=== PATIENT | male | born 1990 | race Caucasian/White ===

== ENCOUNTER 2024-04-14 16:30 | Inpatient (IN) | payer MEDICAID ==
[~2024-04-14] VITALS: Ht 167.6 cm; Wt 75.0 kg
[2024-04-14] MEDS ORDERED: QUET200T PO (17:36)
[2024-04-14] MEDS ORDERED: QUET300T2 PO (17:36)
[2024-04-14] MEDS ORDERED: HYDR-4808 PO (17:36)
[2024-04-14] MEDS ORDERED: SULF-261 PO (17:36)
[2024-04-14] MEDS ORDERED: OLAN2.5T78 PO (17:36)
[2024-04-14 17:55] LABS: GLUCOMETER DEV NAME(LOC) POC.BV; POC SARS-COV2 AG, FIA NEGATIVE (NEGATIVE)
[2024-04-14] MEDS: HALOPERIDOL 5 MG TABLET PO PRN (19:23)
[2024-04-14] MEDS: LORazepam 2 MG TABLET PO PRN (19:23)
[2024-04-14 21:26] VITALS: BP 127/74; PULSE 89; RESP 18; TEMP 97.6; O2SAT 96
[2024-04-15 07:56] LABS: BASOPHILS % (AUTO) 0.8 % (0.0-2.0); EOSINOPHILS % (AUTO) 3.1 % (1.0-6.0); HEMATOCRIT 43.4 % (41-53); HEMOGLOBIN 14.5 g/dL (13.5-17.5); LYMPHOCYTES # (AUTO) 2.2 K/uL (1.0-4.8); LYMPHOCYTES % (AUTO) 31.7 % (22.0-44.0); MEAN CORPUSCULAR HEMOGLOBIN 28.7 pg (26.0-34.0); MEAN CORPUSCULAR HGB CONC 33.4 G/dL (31.0-37.0); MEAN CORPUSCULAR VOLUME 86 fL (80-100); MONOCYTES # (AUTO) 0.5 K/uL (0.1-1.0); MONOCYTES % (AUTO) 7.3 % (2.0-9.0); NEUTROPHILS % (AUTO) 57.1 % (40.0-70.0); PLATELET COUNT (AUTO) 269 K/uL (150-450); RED BLOOD CELL COUNT(AUTO) 5.05 MIL/uL (4.50-5.90); RED CELL DISTRIBUTION WIDTH 12.5 % (11.5-14.5)
[2024-04-15 08:05] VITALS: BP 114/68; PULSE 82; RESP 16; TEMP 97.5; O2SAT 99
[2024-04-15 08:25] LABS: ALANINE AMINOTRANSFERASE 30 U/L (12-78); ALBUMIN 3.4 g/dL (3.4-5.0); ALKALINE PHOSPHATASE 68 U/L (46-116); ANION GAP 7 mmol/L (8-16); ASPARTATE AMINOTRANSFERASE 41 U/L (15-37); BILIRUBIN,TOTAL 0.4 mg/dL (0.1-1.0); CALCIUM, TOTAL 8.7 mg/dL (8.8-10.5); CARBON DIOXIDE 28 mmol/L (22-29); CHLORIDE 105 mmol/L (98-107); CHOL/HDL RATIO 2.5 (4.2-7.3); CHOLESTEROL 140 mg/dL (131-200); CREATININE 0.83 mg/dL (0.60-1.30); FREE T4 (FREE THYROXINE) 0.76 ng/dL (0.76-1.46); GLOMERULAR FILTR. RATE CALC > 60 mL/min (>60); GLUCOSE,RANDOM 90 mg/dL (70-110); HDL CHOLESTEROL 56 mg/dL (40-60); LDL CHOL (CALC.) 69 mg/dL (0-130); SODIUM SERUM 140 mmol/L (136-145); T4 (THYROXINE) 4.7 mcg/dL (4.7-13.3); THYROID STIMULATING HORMONE 1.39 uIU/mL (0.36-3.74); TOTAL PROTEIN, SERUM 6.7 g/dL (6.4-8.2); TRIGLYCERIDES 74 mg/dL (15-150); UREA NITROGEN, BLOOD 13 mg/dL (7-18)
[2024-04-15 08:54] LABS: ALCOHOL, BLOOD (SERUM) < 3 mg/dL (0-10)
[2024-04-15] MEDS ORDERED: HALOPERIDOL LACTATE 5 MG/ML VIAL ONE (17:31)
[2024-04-15] MEDS ORDERED: LORazepam 2 MG/ML VIAL ONE (17:31)
[2024-04-15] MEDS ORDERED: DiphenhydrAMINE HCL 50 MG/ML VIAL ONE (17:31)
[2024-04-15] MEDS ORDERED: ChlorproMAZINE HCL 50 MG/2 ML AMP ONE (17:34)
[2024-04-15] MEDS: DiphenhydrAMINE HCL 50 MG/ML VIAL IM ONE (18:24)
[2024-04-15] MEDS: LORazepam 2 MG/ML VIAL IM ONE (18:24)
[2024-04-15] MEDS: HALOPERIDOL LACTATE 5 MG/ML VIAL IM ONE (18:26)
[2024-04-15] MEDS: QUEtiapine FUMARATE 300 MG TABLET PO SCH (21:09)
[2024-04-15 22:16] VITALS: BP 121/76; PULSE 83; RESP 18; TEMP 97.8
[2024-04-16] MEDS: QUEtiapine FUMARATE 200 MG TABLET PO SCH (08:49)
[2024-04-16 12:44] VITALS: BP 122/71; PULSE 82; RESP 18; TEMP 97.5; O2SAT 98
[2024-04-16 23:15] VITALS: BP 129/82; PULSE 86; RESP 18; TEMP 97.6
[2024-04-17 13:26] VITALS: BP 116/72; PULSE 101; RESP 16; TEMP 97.3; O2SAT 98
[2024-04-17 20:00] VITALS: BP 131/85; PULSE 82; RESP 16; TEMP 97.5; O2SAT 97
[2024-04-17] MEDS: ZOLPIDEM TARTRATE 10 MG TABLET PO PRN (22:05)
[2024-04-18 08:06] VITALS: BP 109/64; PULSE 82; RESP 16; TEMP 98.1; O2SAT 99
[2024-04-18 23:45] VITALS: BP 124/68; PULSE 78; RESP 18; TEMP 98; O2SAT 98
[2024-04-19 08:05] VITALS: BP 110/69; PULSE 77; RESP 16; TEMP 97.6; O2SAT 100
[2024-04-19 22:42] VITALS: BP 117/82; PULSE 88; RESP 18; TEMP 97.5; O2SAT 100
[2024-04-20 08:39] VITALS: BP 108/65; PULSE 77; RESP 18; TEMP 97.3; O2SAT 99
[2024-04-20 20:00] VITALS: BP 113/66; PULSE 69; RESP 16; TEMP 97.8; O2SAT 98
[2024-04-21 08:08] VITALS: BP 109/65; PULSE 83; RESP 16; TEMP 98.3; O2SAT 100
[2024-04-21 21:24] VITALS: BP 121/72; PULSE 70; RESP 18; TEMP 98.9; O2SAT 100
[2024-04-22 08:29] VITALS: BP 106/57; PULSE 77; RESP 18; TEMP 96.9; O2SAT 99
[2024-04-22 20:05] VITALS: BP 111/78; PULSE 82; RESP 18; TEMP 97.8
[2024-04-23 09:46] VITALS: BP 134/58; PULSE 97; RESP 16; O2SAT 99
[2024-04-23] MEDS: SULFAMETHOX/TRIMETH DS 800-160 MG/TABLET PO SCH (11:04)
[2024-04-23 20:12] VITALS: BP 117/66; PULSE 88; RESP 18; TEMP 97.9
[2024-04-23] MEDS ORDERED: SULF-261 PO (20:54)
[2024-04-23 23:02] VITALS: BP 113/66; PULSE 84; RESP 18; TEMP 98
[2024-04-24] MEDS ORDERED: ACETAMINOPHEN 650 MG/20.3 ML SOLUTION UDCUP PO PRN (08:00)
[2024-04-24 08:09] VITALS: RESP 18
[2024-04-24] MEDS: IBUPROFEN 600 MG TABLET PO PRN (08:09)
[2024-04-24 09:09] VITALS: RESP 18
[2024-04-24 10:12] VITALS: BP 112/68; PULSE 90; RESP 16; TEMP 97.7; O2SAT 95
[2024-04-24 21:19] VITALS: BP 124/64; PULSE 98; RESP 18; TEMP 97.6; O2SAT 95
[2024-04-25 08:21] VITALS: BP 108/64; PULSE 88; RESP 18; TEMP 96.8; O2SAT 96
[2024-04-25 08:56] VITALS: RESP 17
[2024-04-25 09:56] VITALS: RESP 18
[2024-04-25 20:03] VITALS: BP 125/52; PULSE 70; RESP 16; TEMP 97.3
[2024-04-26 08:16] VITALS: BP 114/86; PULSE 79; RESP 18; TEMP 97.3; O2SAT 99
[2024-04-26 20:45] VITALS: BP 112/63; PULSE 79; RESP 18; TEMP 97.7; O2SAT 95
[2024-04-27 08:05] VITALS: BP 109/69; PULSE 94; RESP 17; TEMP 97.3; O2SAT 100
[2024-04-27 13:19] VITALS: BP 109/69; PULSE 94; RESP 17; TEMP 97.3; O2SAT 100
[2024-04-27 14:20] VITALS: RESP 17
[2024-04-27 20:33] VITALS: BP 109/69; PULSE 94; RESP 17; TEMP 97.3; O2SAT 100
[2024-04-27] MEDS: ACETAMINOPHEN 500 MG TABLET PO PRN (20:33)
[2024-04-27 20:43] VITALS: BP 110/74; PULSE 96; RESP 17; TEMP 97.3; O2SAT 99
[2024-04-27 21:33] VITALS: RESP 17; O2SAT 98
[2024-04-28 08:04] VITALS: BP 117/70; PULSE 87; RESP 16; TEMP 98.4; O2SAT 100
[2024-04-28] MEDS ORDERED: BACTDSB PO (09:59)
[2024-04-28] MEDS ORDERED: QUET200T30 PO (11:54)
[2024-04-28] MEDS ORDERED: QUET300T19 PO (11:54)
== END 2024-04-28 15:55 | disposition home or self-care (01) | DRG 750 ==
LOC: B3A 17:24
PROVIDERS: ADMIT Psychiatry & Neurology Child & Adolescent Psychiatry; ATTEND Psychiatry & Neurology Child & Adolescent Psychiatry
PROC: GZ56ZZZ Individual Psychotherapy, Supportive (ICD-10-PCS; principal; 2024-04-15)
PROC: GZ52ZZZ Individual Psychotherapy, Cognitive (ICD-10-PCS; 2024-04-15)
PROC: GZHZZZZ Group Psychotherapy (ICD-10-PCS; 2024-04-15)
DX: F25.1 Schizoaffective disorder, depressive type (principal); R45.851 Suicidal ideations; I10 Essential (primary) hypertension; Z20.822 Contact with and (suspected) exposure to COVID-19
CPT/HCPCS: 80053; 80061; 84436; 84439; 84443; 85025; 86592; G0480; J1200; J1630; J2060; J3230

== ENCOUNTER 2024-04-23 18:39 | Emergency (ER) | payer MEDICAID ==
[~2024-04-23] VITALS: Ht 170.2 cm; Wt 75.5 kg
[~2024-04-23 18:39] MED LIST: HYDR-4808 PO; OLAN2.5T78 PO; QUET200T PO; QUET300T2 PO; SULF-261 PO
[2024-04-23 18:53] VITALS: BP 112/71; PULSE 89; RESP 16; TEMP 97.9; O2SAT 98
[2024-04-23] MEDS ORDERED: SULF-261 PO (20:54)
[2024-04-23 21:00] LABS: COVID AG,FIA SOURCE NASAL SWAB
[2024-04-23 21:04] LABS: PH,URINE DRUG SCREEN 7.5 (5.0-8.0)
[2024-04-23] MEDS: SULFAMETHOX/TRIMETH DS 800-160 MG/TABLET PO ONE (21:11)
[2024-04-23 21:12] LABS: ALCOHOL, URINE DRUG SCREEN NEGATIVE (NEGATIVE); AMPHET/METH SCREEN,URINE NEGATIVE (NEGATIVE); BARBITURATE SCREEN, URINE NEGATIVE (NEGATIVE); BENZODIAZEPINES SCREEN,URINE NEGATIVE (NEGATIVE); CANNABINOID SCREEN,URINE NEGATIVE (NEGATIVE); COCAINE SCREEN,URINE NEGATIVE (NEGATIVE); METHADONE SCREEN, URINE NEGATIVE (NEGATIVE); OPIATE SCREEN,URINE NEGATIVE (NEGATIVE); PHENCYCLIDINE SCREEN,URINE NEGATIVE (NEGATIVE)
[2024-04-23 21:22] LABS: SARS-COV2 (COVID) ANTIGEN,FIA Negative (Negative)
== END 2024-04-23 22:17 ==
LOC: EMS 18:40
DX: L73.9 Follicular disorder, unspecified (principal); Z79.899 Other long term (current) drug therapy; Z20.822 Contact with and (suspected) exposure to COVID-19
CPT/HCPCS: 80307; 99283